=== PATIENT | female | born 2000 ===

== ENCOUNTER 2018-01-13 07:04 | Inpatient (IN) | payer OTHER ==
[~2018-01-13] VITALS: Ht 167.6 cm; Wt 101.2 kg
[2018-01-13] MEDS ORDERED: PRENATAL TABLE1 EAC1 PO (08:21)
[2018-01-13] MEDS ORDERED: IRON PO (08:22)
== END 2018-01-15 12:19 | DRG 775 ==
LOC: OB/GYN 07:04 → LDR 07:04 → OB/GYN 22:10
PROC: 10E0XZZ Delivery of Products of Conception, External Approach (ICD-10-PCS; principal; 2018-01-13)
PROC: 3E033VJ Introduction of Other Hormone into Peripheral Vein, Percutaneous Approach (ICD-10-PCS; 2018-01-13)
PROC: 4A033R1 Measurement of Arterial Saturation, Peripheral, Percutaneous Approach (ICD-10-PCS; 2018-01-13)
PROC: 4A1HXCZ Monitoring of Products of Conception, Cardiac Rate, External Approach (ICD-10-PCS; 2018-01-13)
DX: O69.81X0 Labor and delivery complicated by cord around neck, without compression, not applicable or unspecified (principal); O13.4 Gestational [pregnancy-induced] hypertension without significant proteinuria, complicating childbirth; Z3A.38 38 weeks gestation of pregnancy; Z37.0 Single live birth